=== PATIENT | male | born 1980 | race American Indian/Alaskan Native ===

== ENCOUNTER 2017-07-03 18:27 | Emergency (ER) | payer SELFPAY ==
[2017-07-03 22:06] VITALS: RESP 18
== END 2017-07-03 19:30 | disposition left against medical advice (07) ==
LOC: C.ER 18:27
DX: Z02.89 Encounter for other administrative examinations (principal); M79.604 Pain in right leg

== ENCOUNTER 2017-09-02 21:56 | Emergency (ER) | payer BC ==
[2017-09-02 22:39] LABS: BASO # 0.1 K/uL (0.0-0.2); BASO % 0.5 % (0.0-2.0); EOS # 0.5 K/uL (0.0-0.7); EOS % 4.9 % (0.0-4.0); HEMOGLOBIN 14.3 g/dL (12.0-18.0); LYMPH # 1.2 K/uL (1.0-4.3); LYMPH % 12.1 % (20.0-40.0); MEAN CORPUSCULAR HEMOGLOBIN 29.3 pg (27.0-31.0); MEAN CORPUSCULAR HGB CONC 33.6 g/dL (33.0-37.0); MEAN PLATELET VOLUME 10.5 fL (7.2-11.7); MONO # 0.5 K/uL (0.0-0.8); MONO % 5.2 % (0.0-10.0); NEUT # 7.8 K/uL (1.8-7.0); NEUT % 77.3 % (50.0-75.0); NRBC % 0.2 % (0.0-2.0); RBC 4.88 Mil/uL (4.40-5.90); WHITE BLOOD COUNT 10.1 K/uL (4.8-10.8)
[2017-09-02 22:41] LABS: SQUAMOUS EPITHIAL < 1 /hpf (0-5); URINE BILIRUBIN NEGATIVE (NEGATIVE); URINE BLOOD NEGATIVE (NEGATIVE); URINE CLARITY Clear (Clear); URINE COLOR Straw (YELLOW); URINE GLUCOSE (UA) NORMAL (Normal); URINE LEUKOCYTE ESTERASE NEG Leu/uL (Negative); URINE PROTEIN NEGATIVE (NEGATIVE); URINE UROBILINOGEN NORMAL mg/dL (0.2-1.0)
[2017-09-02 22:42] VITALS: O2SAT 98
[2017-09-02 22:53] LABS: ALB/GLOB RATIO 1.2 (1.0-2.1); ALT/SGPT 26 U/L (21-72); AST/SGOT 25 U/L (17-59); BLOOD UREA NITROGEN 11 mg/dL (9-20); CALCIUM 8.8 mg/dl (8.6-10.4); GFR AFRICAN-AMERICAN > 60; GFR NON-AFRICAN AMERICAN > 60
[2017-09-02 23:01] LABS: BARBITURATES, UR NEGATIVE (NEGATIVE); BENZODIAZEPINES, UR NEGATIVE (NEGATIVE); OPIATES, UR NEGATIVE (NEGATIVE)
[2017-09-02 23:04] LABS: PHENCYCLIDINE, UR POSITIVE (NEGATIVE)
--- NOTE | 2017-09-02 23:27 | C.PDOC ---
History Of Present Illness 36 year old male is brought to the ED by ambulance and [facility] for psychiatric evaluation. As per ambulance, patient verbalized suicidal ideation at work earlier today. Patient states he has had this ideation for years. He states he has been feeling stressed out, feeling pressure from work and his family. Patient admits to drug use (no further details). He denies suicidal plan, homicidal ideation, alcohol use and has no other complaints at this time. Chief Complaint (Nursing): Psychiatric Evaluation History Per: Patient, EMS History/Exam Limitations: no limitations Onset/Duration Of Symptoms: Hrs Current Symptoms Are (Timing): Still Present Suicide/Self Injury Attempted (Context): None Associated Symptoms: Suicidal Thoughts Involuntary Hold By: None Recent travel outside of the [place]: No Additional History Per: Patient, EMS, Law Enforcement Past Medical History Reviewed: Historical Data, Nursing Documentation, Vital Signs Vital Signs: Last Vital Signs Temp 98.4 F 09/02/17 22:36 Pulse 69 09/02/17 22:36 Resp 20 09/02/17 22:36 BP 155/86 H 09/02/17 22:36 Pulse Ox 98 09/02/17 23:35 - Medical History PMH: HTN Surgical History: No Surg Hx Family History: States: Unknown Family Hx - Social History Hx Alcohol Use: Yes Hx Substance Use: No - Immunization History Hx Tetanus Toxoid Vaccination: No Hx Influenza Vaccination: No Hx Pneumococcal Vaccination: No Review Of Systems Psych: Positive for: Suicidal ideation Physical Exam - Physical Exam Appears: Non-toxic, No Acute Distress Skin: Normal Color, Warm, Dry Head: Atraumatic, Normacephalic Eye(s): bilateral: Normal Inspection Oral Mucosa: Moist Neck: Supple Chest: Symmetrical, No Deformity, No Tenderness Cardiovascular: Rhythm Regular, No Murmur Respiratory: Normal Breath Sounds, No Rales, No Rhonchi, No Wheezing Extremity: Normal ROM Neurological/Psych: Oriented x3, Normal Speech, Normal Cognition ED Course And Treatment - Laboratory Results Result Diagrams: 09/02/17 22:33 09/02/17 22:33 O2 Sat by Pulse Oximetry: 98 (on RA) Pulse Ox Interpretation: Normal Progress Note: Bloodwork and UA ordered and reviewed. Patient placed on 1:1 ED observation. Disposition Discussed With : Glenn Ahumada Counseled Patient/Family Regarding: Diagnosis - Disposition Referrals: [facility] [Outside] Disposition: HOME/ ROUTINE Disposition Time: 02:24 Condition: STABLE Instructions: Depression, Adult (DC) Forms: [employer] [facility] (Upper Sorbian) - POA Present On Arrival: None - Clinical Impression Clinical Impression: Depressive disorder - Scribe Statement The provider has reviewed the documentation as recorded by the Scribe (Jenny Norton) Provider Attestation: All medical record entries made by the Scribe were at my direction and personally dictated by me. I have reviewed the chart and agree that the record accurately reflects my personal performance of the history, physical exam, medical decision making, and the department course for this patient. I have also personally directed, reviewed, and agree with the discharge instructions and disposition.
[2017-09-03 02:48] VITALS: BP 150/94; PULSE 71; RESP 18; TEMP 98.6
== END 2017-09-03 02:56 | disposition home or self-care (01) ==
LOC: C.ER 21:56
DX: F32.9 Major depressive disorder, single episode, unspecified (principal)
CPT/HCPCS: 80053; 81001; 85025; 99285; G0480

== ENCOUNTER 2018-07-22 22:20 | Emergency (ER) | payer BC ==
[2018-07-22 22:39] VITALS: BP 163/90; PULSE 112; RESP 20; TEMP 98.2; O2SAT 98
--- NOTE | 2018-07-22 23:45 | C.PDOC ---
History Of Present Illness 37 year old male presents to the ED requesting alcohol and PCP detox. Patient denies suicidal/homicidal ideation. Time Seen by Provider: 07/22/18 22:44 Chief Complaint (Nursing): Substance Abuse History Per: Patient History/Exam Limitations: no limitations Onset/Duration Of Symptoms: Hrs Current Symptoms Are (Timing): Still Present Modifying Factor(s): Alcohol, Other (PCP) Associated Symptoms: denies: Suicidal Thoughts, Suicidal Plan Additional History Per: Patient Past Medical History Reviewed: Historical Data, Nursing Documentation, Vital Signs Vital Signs: Last Vital Signs Temp 98.2 F 07/22/18 22:35 Pulse 112 H 07/22/18 22:35 Resp 20 07/22/18 22:35 BP 163/90 H 07/22/18 22:35 Pulse Ox 98 07/22/18 22:35 - Medical History PMH: Anxiety, Depression, HTN Denies: Diabetes, Hepatitis, HIV, Seizures, Sexually Transmitted Disease Surgical History: No Surg Hx Family History: States: Unknown Family Hx - Social History Hx Alcohol Use: Yes Hx Substance Use: Yes (UNKNOWN) - Immunization History Hx Tetanus Toxoid Vaccination: No Hx Influenza Vaccination: No Hx Pneumococcal Vaccination: No Review Of Systems Psych: Positive for: Other (alcohol and PCP detox ). Negative for: Suicidal ideation Physical Exam - Physical Exam Appears: Non-toxic, No Acute Distress, Other (thin, athletic black male ) Skin: Normal Color, Warm, Dry Head: Atraumatic, Normacephalic Eye(s): bilateral: Normal Inspection Oral Mucosa: Moist Neck: Supple Chest: Symmetrical, No Deformity Respiratory: No Accessory Muscle Use Extremity: Normal ROM Neurological/Psych: Other (bizarre behavior ) Gait: Steady ED Course And Treatment O2 Sat by Pulse Oximetry: 98 (on RA) Pulse Ox Interpretation: Normal Progress Note: Explained to patient that there are no detox beds available at this time. Offered patient a place to sleep for the night. Medical Decision Making Medical Decision Makin: pt irritable, will not stay in the HW4 bed, ambulating through the ED no Detox available pt now claims he does not want detox anyway and wants d/c to street allowed to leave ED stable gait will not wait for d/c paperwork Disposition Doctor Will See Patient In The: Office Counseled Patient/Family Regarding: Studies Performed, Diagnosis - Disposition Referrals: [facility] [Outside] [facility] [Outside] Disposition: ELOPEMENT - ER ONLY Disposition Time: 23:45 Condition: GOOD Forms: [facility] (Welsh) - Clinical Impression Clinical Impression: Drug abuse - Scribe Statement The provider has reviewed the documentation as recorded by the Scribe (Jenny Norton) Provider Attestation: All medical record entries made by the Scribe were at my direction and personally dictated by me. I have reviewed the chart and agree that the record accurately reflects my personal performance of the history, physical exam, medical decision making, and the department course for this patient. I have also personally directed, reviewed, and agree with the discharge instructions and disposition.
== END 2018-07-22 23:43 | disposition left against medical advice (07) ==
LOC: C.ER 22:20
DX: F19.10 Other psychoactive substance abuse, uncomplicated (principal)

== ENCOUNTER 2018-07-23 01:58 | Emergency (ER) | payer BC ==
[2018-07-23 02:07] VITALS: TEMP 97.4
[2018-07-23 02:23] VITALS: RESP 14
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
[2018-07-23 04:51] VITALS: BP 160/90; PULSE 80
[2018-07-23 06:00] VITALS: O2SAT 98
--- NOTE | 2018-07-23 11:56 | RAD ---
PROCEDURE: Right Hand Radiographs. HISTORY: injury COMPARISON: None available. FINDINGS: BONES: No acute displaced fracture. JOINTS: No dislocation. SOFT TISSUES: Unremarkable. No evidence of radiopaque foreign body. OTHER FINDINGS: None. IMPRESSION: No acute displaced fracture, dislocation, or significant joint effusion identified. If symptoms persist, or if there is continued clinical concern, x-ray follow-up in 7-10 days should be considered.
== END 2018-07-23 04:51 | disposition home or self-care (01) ==
LOC: C.ER 01:58
DX: S16.1XXA Strain of muscle, fascia and tendon at neck level, initial encounter (principal); S63.91XA Sprain of unspecified part of right wrist and hand, initial encounter; Y04.0XXA Assault by unarmed brawl or fight, initial encounter; I10 Essential (primary) hypertension